=== PATIENT | male | born 1950 | race Caucasian/White ===

== ENCOUNTER 2018-03-24 13:10 | Inpatient (IN) ==
[2018-03-24] MEDS ORDERED: ceFAZolin 2 GM Premix Inj 2 GM/50 ML PIGGYBACK IV.SIG ONE (13:13)
[2018-03-24] MEDS ORDERED: Diphtheria/Tetanus/Pertussis Vaccine Inj 0.5 ML Syringe IM ONE (13:13)
[2018-03-24] MEDS ORDERED: fentaNYL Citrate Inj 100 MCG/2 ML Ampul ONE ×2 (13:22→20:35)
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
[2018-03-24 13:39] LABS: Baso # (Auto) 0.1 th/mm3 (0.0-0.2); Baso % (Auto) 0.9 % (0.0-2.0); Eos % (Auto) 0.2 % (0.0-4.0); Hematocrit 41.2 % (39.0-51.0); Lymph # (Auto) 1.6 th/mm3 (1.0-4.8); Lymph % (Auto) 18.7 % (9.0-44.0); Mean Corpuscular Hemoglobin 31.7 pg (27.0-34.0); Mean Corpuscular Volume 93.3 fL (80.0-100.0); Mean Platelet Volume 8.5 fL (7.0-11.0); Mono # (Auto) 0.7 th/mm3 (0.0-0.9); Mono % (Auto) 7.7 % (0.0-8.0); Neut # (Auto) 6.4 th/mm3 (1.8-7.7); Neut % (Auto) 72.5 % (16.0-70.0); Platelet Count 223 th/mm3 (150-450); Red Blood Count 4.42 mil/mm3 (4.50-5.90); Red Cell Distribution Width 13.4 % (11.6-17.2); White Blood Count 8.8 th/mm3 (4.0-11.0)
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
[2018-03-24 13:48] LABS: Activated Partial Thrombo Time 21.2 sec (24.3-30.1); INR 1.1 Ratio; Prothrombin Time 10.7 sec (9.8-11.6)
[2018-03-24] MEDS ORDERED: Lidocaine 2%/Epinephrine 1:100,000 30 ML MDV INFILTRATN ONE (13:52)
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
[2018-03-24] MEDS ORDERED: Morphine Inj 4 MG/ML Vial IV.PUSH PRN (14:25)
[2018-03-24] MEDS ORDERED: Bisacodyl 10 MG Supp RECTAL PRN (14:25)
[2018-03-24] MEDS ORDERED: Post-op Orders (for Pharmacy) OTHER STA (14:25)
[2018-03-24] MEDS ORDERED: ceFAZolin Inj 2,000 MG in Sodium Chlor 0.9% Inj 80 ML IV.SIG SCH (15:00)
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
[2018-03-24] MEDS: oxyCODONE/Acetaminophen 10/325 Tablet PO PRN (15:56)
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
[2018-03-24] MEDS ORDERED: Lidocaine 2%/Epinephrine 1:100,000 Inj 20 ML Vial INFILTRATN ONE (16:15)
[2018-03-24] MEDS ORDERED: Glycopyrrolate Inj 1 MG/5 ML Syringe IV.PUSH ONE (16:24)
[2018-03-24] MEDS ORDERED: Lidocaine PF 1% Inj 5 ML Syringe INFILTRATN ONE (16:24)
[2018-03-24] MEDS ORDERED: Succinylcholine Inj 100 MG/5 ML Syringe IV.PUSH ONE (16:24)
[2018-03-24] MEDS ORDERED: Phenylephrine/NS 1000 MCG/10ML Syringe IV.PUSH ONE (16:24)
[2018-03-24] MEDS: Gentamicin Inj 80 MG in Sodium Chlor 0.9% Inj 100 ML IV.SIG SCH (17:13)
--- NOTE | 2018-03-24 20:47 | P.BOP ---
- Preoperative Diagnosis (1) Degloving injury of ankle (2) Degloving injury of left foot (3) Degloving injury of left lower leg Date of procedure: 03/24/18 Procedure: Irrigation and debridement of left leg/ankle/foot degloving injury Irrigation with 9L normal saline plus gentamicin, followed by reapproximation with 2-0 nylon suture and wound vac dressing set at 125mmHg medium continuous setting. Degloved wound approx 30cm x 15 cm x 0.5cm depth down to deep fascia. All deep vessels intact. Palpable pedal pulses. Anterior proximal aspect of leg wound undermines 7cm Lateral ankle undermines 3cm Plantar heel undermines 3cm Posterior heel undermines 5cm Medial ankle attached to medial malleolus with undermining of flap. Plan to OR Saturday for repeat I&D and possible partial closure vs graft and wound vac pending tissue viability. Will consult plastics based on tissue viability in the coming days. Nonweightbearing left lower extremity. Continue IV ancef/gentamicin x 24 hours. Implants: n/a Anesthesia: other (general) Surgeon: Shawn Wilkinson DPM Safety Teacher: staff Estimated blood loss (mL): 25 Pathology: other (culture left leg) Condition: stable Disposition: PACU
[2018-03-24] MEDS: ceFAZolin 2 GM Premix Inj 2 GM/50 ML PIGGYBACK IV.SIG SCH (21:11)
[2018-03-24] MEDS: Senna/Docusate Sodium 8.6/50 MG Tablet PO SCH (23:57)
[2018-03-24] MEDS: Famotidine 20 MG Tablet PO SCH (23:57)
[2018-03-25] MEDS: Gentamicin Inj 80 MG in Sodium Chlor 0.9% Inj 100 ML IV.SIG SCH ×3 (01:07→17:23)
[2018-03-25] MEDS: ceFAZolin 2 GM Premix Inj 2 GM/50 ML PIGGYBACK IV.SIG SCH ×2 (05:26→12:12)
[2018-03-25 06:52] LABS: Baso % (Auto) 0.1 % (0.0-2.0); Hematocrit 39.3 % (39.0-51.0); Hemoglobin 13.6 gm/dL (13.0-17.0); Lymph # (Auto) 0.5 th/mm3 (1.0-4.8); Lymph % (Auto) 4.2 % (9.0-44.0); Mean Corpuscular HGB Conc 34.7 % (32.0-36.0); Mean Corpuscular Volume 92.2 fL (80.0-100.0); Mean Platelet Volume 9.1 fL (7.0-11.0); Mono # (Auto) 0.7 th/mm3 (0.0-0.9); Mono % (Auto) 6.3 % (0.0-8.0); Neut # (Auto) 9.8 th/mm3 (1.8-7.7); Neut % (Auto) 89.4 % (16.0-70.0); Platelet Count 189 th/mm3 (150-450); Red Blood Count 4.26 mil/mm3 (4.50-5.90); White Blood Count 10.9 th/mm3 (4.0-11.0)
[2018-03-25 07:15] LABS: Calcium 8.5 mg/dL (8.5-10.1); Carbon Dioxide 22.1 meq/L (21.0-32.0); Potassium 4.2 meq/L (3.5-5.1)
[2018-03-25] MEDS: Senna/Docusate Sodium 8.6/50 MG Tablet PO SCH ×2 (08:46→20:57)
[2018-03-25] MEDS: Famotidine 20 MG Tablet PO SCH ×2 (08:46→20:57)
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
[2018-03-25] MEDS ORDERED: Acetaminophen 325 MG Tablet PO PRN (18:39)
[2018-03-25] MEDS: oxyCODONE/Acetaminophen 10/325 Tablet PO PRN (20:54)
[2018-03-25] MEDS: Enoxaparin Inj 40 MG/0.4 ML Syringe SQ SCH (20:57)
--- NOTE | 2018-03-25 21:27 | P.PNPOD ---
Subjective Interval history: Degloving injury left leg/ankle/foot, s/p I&D 03/24/11 Dr Wilkinson Review of Systems All other systems reviewed negative except as stated in HPI Physical Exam Vital signs: Vital Signs 03/24/18 21:30 03/24/18 22:00 03/24/18 23:00 Temperature Pulse Rate 65 61 52 L Respiratory Rate 21 14 14 Blood Pressure 109/62 107/65 118/72 Pulse Oximetry 98 98 95 03/25/18 00:00 03/25/18 08:00 03/25/18 10:32 Temperature 97.5 F L 98.2 F Pulse Rate 70 60 Respiratory Rate 18 16 Blood Pressure 116/72 108/55 L Pulse Oximetry 95 96 96 03/25/18 16:00 Temperature 98.9 F Pulse Rate 60 Respiratory Rate 18 Blood Pressure 102/54 L Pulse Oximetry 97 Intake & Output 03/25/18 03/25/18 03/26/18 06:59 18:59 06:59 Intake Total 1590 / 1590 1704 / 1704 Output Total 1270 / 1270 65 / 65 Balance 320 / 320 1704 / 1704 -65 / -65 Intake: IV 50 / 50 304 / 304 Gentamicin Inj 80 MG In NS Inj 204 / 204 100 ML @ 204 mls/hr IV.SIG Q8H [facility] Rx#:[id number] Ancef 2 GM Premix Inj 2 gm In 50 / 50 100 / 100 50 ml @ 100 mls/hr IV.SIG Q8H [facility] Rx#:[id number] Oral 240 / 240 1400 / 1400 Anesthesia Amount 1300 / 1300 Output: Urine 1200 / 1200 Estimated Blood Loss 20 / 20 Wound Drainage 50 / 50 65 / 65 Left Foot 50 / 50 65 / 65 Other: # Voids 3 Date of Last Bowel Movement 03/24/18 - Constitutional no acute distress - Neurological Alert and oriented x3 Medications and Allergies Active Medications: Active Medications Acetaminophen (Tylenol) 650 mg PO Q6H PRN PRN Reason: PAIN 1-10 AND/OR FEVER >101F Al Hydroxide/Mg Hydroxide (Milk Of Magnesia Liq) 30 ml PO Q12H PRN PRN Reason: Mild Constipation Bisacodyl (Dulcolax Supp) 10 mg RECTAL DAILY PRN PRN Reason: SEVERE CONSITIPATION Enoxaparin Sodium (Lovenox Inj) 40 mg SQ Q24H [facility] Last Admin: 03/25/18 20:57 Dose: 40 mg Famotidine (Pepcid) 20 mg PO BID [facility] Last Admin: 03/25/18 20:57 Dose: 20 mg Lactulose (Lactulose Liq) 30 ml PO DAILY PRN PRN Reason: SEVERE CONSITIPATION Morphine Sulfate (Morphine Inj) 4 mg IV.PUSH Q3H PRN PRN Reason: BREAKTHROUGH PAIN Last Admin: 03/24/18 16:48 Dose: 4 mg Ondansetron HCl (Zofran Odt) 4 mg PO Q6H PRN PRN Reason: NAUSEA OR VOMITING Ondansetron HCl (Zofran Inj) 4 mg IV.PUSH Q6H PRN PRN Reason: NAUSEA OR VOMITING Oxycodone/Acetaminophen (Percocet 10/325 Mg) 1 tab PO Q4H PRN PRN Reason: Acute Pain Last Admin: 03/25/18 20:54 Dose: 1 tab Oxycodone/Acetaminophen (Percocet 5/325 Mg) 1 tab PO Q4H PRN PRN Reason: Acute Pain/PAIN 1-5 Last Admin: 03/25/18 16:11 Dose: 1 tab Senna/Docusate Sodium (Tracee-Colace) 1 tab PO BID [facility] Last Admin: 03/25/18 20:57 Dose: 1 tab Sennosides (Senokot) 17.2 mg PO Q12H PRN PRN Reason: Moderate Constipation Sodium Chloride (Ns Flush) 2 ml IV.FLUSH BID [facility] Last Admin: 03/25/18 20:57 Dose: Not Given Sodium Chloride (Ns Flush) 2 ml IV.FLUSH PRN PRN PRN Reason: FLUSH AFTER USING IV ACCESS Allergies Allergy/AdvReac Type Severity Reaction Status Date / Time No Known Allergies Allergy Unverified 03/24/18 14:05 Home Medications Medication Instructions Recorded Confirmed Type No Known Home Medications 03/24/18 03/24/18 History Results - Labs CBC & Chem 7: 03/25/18 04:55 03/25/18 04:55 Laboratory Results - last 24 hr 03/25/18 03/25/18 04:55 04:55 WBC 10.9 RBC 4.26 L Hgb 13.6 Hct 39.3 MCV 92.2 MCH 32.0 MCHC 34.7 RDW 13.0 Plt Count 189 MPV 9.1 Neut % (Auto) 89.4 H Lymph % (Auto) 4.2 L [place] % (Auto) 6.3 Eos % (Auto) 0.0 Baso % (Auto) 0.1 Neut # (Auto) 9.8 H Lymph # (Auto) 0.5 L [place] # (Auto) 0.7 Eos # (Auto) 0.0 Baso # (Auto) 0.0 WBC Differential . Differential Comment Auto diff final Sodium 140 Potassium 4.2 Chloride 107 Carbon Dioxide 22.1 Anion Gap 11 BUN 11 Creatinine 0.93 Estimated GFR 70 L Random Glucose 135 H Calcium 8.5 Microbiology 03/24/18 19:42 Tissue - Other Gram Stain - Final 03/24/18 19:42 Tissue - Other Wound Culture - Preliminary No growth in 24 hours - Imaging Microbiology 03/24/18 19:42 Gram Stain - Final Tissue - Other Wound Culture - Preliminary No growth in 24 hours Assessment and Plan - Assessment (1) Degloving injury of ankle Code(s): S91.009A - Unspecified open wound, unspecified ankle, initial encounter Status: Acute (2) Degloving injury of left foot Code(s): S91.302A - Unspecified open wound, left foot, initial encounter Status: Acute (3) Degloving injury of left lower leg Code(s): S81.802A - Unspecified open wound, left lower leg, initial encounter Status: Acute - Plan To OR for 2nd irrigation/debridement left leg/ankle/foot tomorrow 330 pm. Consult plastic surgery due to extensive nature of wound for continued care (2) Degloving injury of left foot Qualifiers: Encounter type: initial encounter Qualified Code(s): S91.302A - Unspecified open wound, left foot, initial encounter (3) Degloving injury of left lower leg Qualifiers: Encounter type: initial encounter Qualified Code(s): S81.802A - Unspecified open wound, left lower leg, initial encounter
[2018-03-26 05:53] LABS: Baso % (Auto) 0.5 % (0.0-2.0); Eos % (Auto) 0.3 % (0.0-4.0); Hematocrit 36.9 % (39.0-51.0); Hemoglobin 12.4 gm/dL (13.0-17.0); Lymph # (Auto) 1.6 th/mm3 (1.0-4.8); Mean Corpuscular HGB Conc 33.5 % (32.0-36.0); Mean Corpuscular Hemoglobin 31.4 pg (27.0-34.0); Mean Corpuscular Volume 93.8 fL (80.0-100.0); Mono # (Auto) 0.9 th/mm3 (0.0-0.9); Mono % (Auto) 10.3 % (0.0-8.0); Neut # (Auto) 6.3 th/mm3 (1.8-7.7); Neut % (Auto) 70.9 % (16.0-70.0); Platelet Count 171 th/mm3 (150-450); Red Blood Count 3.93 mil/mm3 (4.50-5.90); Red Cell Distribution Width 12.9 % (11.6-17.2); White Blood Count 8.9 th/mm3 (4.0-11.0)
[2018-03-26 06:05] LABS: Calcium 8.4 mg/dL (8.5-10.1); Carbon Dioxide 25.7 meq/L (21.0-32.0); Potassium 3.9 meq/L (3.5-5.1)
[2018-03-26] MEDS: oxyCODONE/Acetaminophen 10/325 Tablet PO PRN ×3 (06:58→19:53)
[2018-03-26] MEDS: Famotidine 20 MG Tablet PO SCH ×2 (08:53→20:03)
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
[2018-03-26] MEDS: Senna/Docusate Sodium 8.6/50 MG Tablet PO SCH ×2 (15:30→20:03)
[2018-03-26] MEDS ORDERED: Lidocaine PF 1% Inj 5 ML Syringe INFILTRATN ONE (16:24)
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
--- NOTE | 2018-03-26 16:37 | P.BOP ---
- Preoperative Diagnosis (1) Degloving injury of ankle (2) Degloving injury of left foot (3) Degloving injury of left lower leg - Postoperative Diagnosis (1) Degloving injury of ankle (2) Degloving injury of left foot (3) Degloving injury of left lower leg Date of procedure: 03/26/18 Procedure: Irrigation and debridement of degloving injury left foot/ankle/leg Microbiology 03/24/18 19:42 Fungal Smear - Final Tissue - Other No fungal elements seen 03/24/18 19:42 Acid Fast Bacilli Smear - Final Tissue - Other No acid fast bacilli seen 03/24/18 19:42 Gram Stain - Final Tissue - Other Wound Culture - Preliminary Wound margins as approximated appear viable and warm skin temperature. No necrotic tissue is noted at time of surgery. Irrigation with 1L NS and debridement of tissue at wound margins with rongeur and #15 blade. Dressing with silvadene, telfa, abd, cast padding, posterior splint applied, taking care to offload heel posterior heel area. Nonweightbearing left lower extremity. Plastics consulted and Dr Romo examined surgical sites preoperatively in OR, and gave recommendations. States tissue appears viable to all flaps at this time and will continue to follow in case extensive grafting is required. No further surgery planned at this time. Ok with discharge on oral broad spectrum coverage antibiotics x 2 weeks. Micro from first surgery as above. Will need home health for wound care at home for DAILY dressing changes with silvadene, telfa, abd, soft roll cast padding, and apply posterior splint. Anesthesia: other (General) Surgeon: Shawn Wilkinson DPM Estimated blood loss (mL): 20 Pathology: none sent Condition: stable Disposition: PACU
[2018-03-26] MEDS ORDERED: fentaNYL Citrate Inj 100 MCG/2 ML Ampul ONE (16:38)
[2018-03-26] MEDS ORDERED: Silver Sulfadiazine 1% Ceam 400 GM Jar TOPICAL ONE (17:00)
[2018-03-26] MEDS: Enoxaparin Inj 40 MG/0.4 ML Syringe SQ SCH (20:02)
--- NOTE | 2018-03-27 06:16 | P.DCO ---
- Diagnosis (1) Degloving injury of left lower leg - Physical Therapy Order: Evaluate and treat, Improve ambulation - Home Health Nursing Order: Wound care and dressing changes, Nursing assessment with vital signs Instructions: DAILY dressing changes with silvadene, telfa, abd, soft roll cast padding, and apply posterior splint. - Case Management Consult Yes - Certification I have seen patient Sergio Baltazar on 03/27/18. My clinical findings support the need for the requested home health care services because: Limited ability to care for self, High risk of falls I certify that my clinical findings support that this patient is homebound because: Post-op weakness (1) Degloving injury of left lower leg Qualifiers: Encounter type: initial encounter Qualified Code(s): S81.802A - Unspecified open wound, left lower leg, initial encounter
[2018-03-27] MEDS: Famotidine 20 MG Tablet PO SCH (08:20)
[2018-03-27] MEDS: Senna/Docusate Sodium 8.6/50 MG Tablet PO SCH (08:20)
[2018-03-27] MEDS: oxyCODONE/Acetaminophen 10/325 Tablet PO PRN (09:38)
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
[2018-03-27 14:06] VITALS: TEMP 98; O2SAT 95
[2018-03-27 14:08] VITALS: BP 115/58; PULSE 63; RESP 17
--- NOTE | 2018-03-27 17:58 | P.PNPOD ---
Subjective Interval history: DELAYED ENTRY- pt seen 4:30pm SP Repair debridment leg, doing well Physical Exam Vital signs: Vital Signs 03/26/18 20:00 03/27/18 00:00 03/27/18 04:00 Temperature 98.9 F 98.3 F 97.8 F Pulse Rate 56 L 58 L 59 L Respiratory Rate 20 18 18 Blood Pressure 116/55 L 111/57 L 140/80 Pulse Oximetry 94 L 96 98 03/27/18 08:00 03/27/18 10:48 03/27/18 12:00 Temperature 98.0 F 98.0 F Pulse Rate 65 63 Respiratory Rate 18 18 17 Blood Pressure 121/62 115/58 L Pulse Oximetry 95 95 Intake & Output 03/26/18 03/27/18 03/27/18 18:59 06:59 18:59 Intake Total 330 / 330 1320 / 1320 Output Total 325 / 325 Balance 330 / 330 995 / 995 Weight 96.3 kg Intake: IV 1000 / 1000 LR 1000 mL Inj 1,000 ML @ 30 1000 / 1000 mls/hr IV.SIG .Q24H [facility] Rx#: [id number] Oral 320 / 320 Anesthesia Amount 300 / 300 Other 30 / 30 Output: Urine 325 / 325 Other: Other Intake Source Saline Solution Date of Last Bowel Movement 03/24/18 Narrative: LEFT LE- bandage and splint clean dry and intact good ROM of digits CFT WNL no calf or thigh tenderness Medications and Allergies Allergies Allergy/AdvReac Type Severity Reaction Status Date / Time No Known Allergies Allergy Unverified 03/24/18 14:05 Results - Labs CBC & Chem 7: 03/26/18 04:10 03/26/18 04:10 Microbiology 03/24/18 19:42 Tissue - Other Gram Stain - Final 03/24/18 19:42 Tissue - Other Wound Culture - Final 03/24/18 19:42 Tissue - Other Fungal Smear - Final No fungal elements seen - Procedures 03/24: I&D LEFT ankle and foot 03/26: I&D of degloving injury left foot/ankle/leg Assessment and Plan - Assessment (1) Degloving injury of ankle Code(s): S91.009A - Unspecified open wound, unspecified ankle, initial encounter Status: Acute (2) Degloving injury of left foot Code(s): S91.302A - Unspecified open wound, left foot, initial encounter Status: Acute Plan: OK to dc home FU with Dr Wilkinson, anticipate bandage change in 2-3 days, spoke about smoking cessation to help healing. (3) Degloving injury of left lower leg Code(s): S81.802A - Unspecified open wound, left lower leg, initial encounter Status: Acute (2) Degloving injury of left foot Qualifiers: Encounter type: initial encounter Qualified Code(s): S91.302A - Unspecified open wound, left foot, initial encounter (3) Degloving injury of left lower leg Qualifiers: Encounter type: initial encounter Qualified Code(s): S81.802A - Unspecified open wound, left lower leg, initial encounter
--- NOTE | 2018-03-28 16:36 | MP ---
cc: Shawn Wilkinson DPM DATE OF OPERATION: 03/26/2018 INDICATION: This patient presented initially on 03/24/2018 with a degloving injury to the left foot, ankle, and lower leg. He underwent irrigation and debridement of the degloving injury with wound VAC placement and was scheduled for repeat irrigation and debridement to determine if the tissue was viable and evaluate for possible graft. Risks, benefits and potential complications were explained in detail to the patient. He agreed to move forward with surgery. He was seen in preop holding by myself, nursing staff and anesthesia where the correct patient, side and site were all confirmed to be correct in the left leg, ankle, and foot. DESCRIPTION OF PROCEDURE: He was then taken to surgical suite in supine position. The left foot was prepped and draped in normal sterile fashion. After timeouts were performed as per facility protocol, the wound margins were noted to be viable and warm with healthy bleeding edges. Skin temperature was within normal limits with no necrotic tissue noted to the margins at the time of surgery. The wound was irrigated with 1 liter of normal saline followed by debridement of tissue at the wound margins with both rongeur and #15 blade to excisionally debride any nonviable tissue. A dressing consisting of Silvadene, Telfa, ABD pad, cast padding and posterior splint was applied to the left lower extremity. He tolerated the procedure and anesthesia well without complications and was taken back to PACU with vital signs stable and vascular status intact to the left leg. He will be nonweightbearing on the left lower extremity. Plastics was consulted intraoperatively and Dr. Romo examined the surgical sites in the OR and gave his recommendations. He stated that the tissue appeared viable to all the flaps at this time and he will continue to follow in case further tissue necrosis happens with time and extensive grafting is required. He will be on board in case this happens. No further surgery, however, is planned at this time. It is okay to discharge the patient on oral broad spectrum antibiotics for 2 weeks, and he will need home health care for daily dressing changes as ordered. SHORT OPERATIVE NOTE SURGEON: Shawn Wilkinson DPM LATHE WINDER: Staff. PREOPERATIVE DIAGNOSIS: Degloving injury of left ankle, foot and lower leg. POSTOPERATIVE DIAGNOSIS: Degloving injury of left ankle, foot and lower leg. PROCEDURE PERFORMED: Irrigation and debridement of degloving injury, left foot, ankle and leg. PATHOLOGY: None. ESTIMATED BLOOD LOSS: 20 mL PROPHYLAXIS: None. CONDITION: Stable to PACU. DISPOSITION: Nonweightbearing, left lower extremity in posterior splint. No further surgery planned at this time. Follow up in clinic for further wound care. BREA Jones/SHERIE , 04:20 PM , 04:34 PM
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
== END 2018-03-27 16:25 | disposition home health service (06) ==
LOC: NEPI 13:10 → EDBD 16:31 → NEDA 16:31 → HPAC 19:00 → N07 03-25 00:36
PROVIDERS: ADMIT Surgery Trauma Surgery; ATTEND Surgery Trauma Surgery